=== PATIENT | male | born 1975 | race African-American/Black ===

== ENCOUNTER 2017-10-25 20:22 | Emergency (ER) | payer SELFPAY ==
[~2017-10-25] VITALS: Ht 175.3 cm; Wt 68.0 kg
[2017-10-25 21:54] VITALS: BP 149/107
== END 2017-10-26 00:30 | disposition left against medical advice (07) ==
LOC: ER 21:05
DX: Z53.21 Procedure and treatment not carried out due to patient leaving prior to being seen by health care provider (principal); F17.200 Nicotine dependence, unspecified, uncomplicated